=== PATIENT | male | born 1965 | race Two or more races ===

== ENCOUNTER → 2018-07-24 | Outpatient (CLI) | payer OTHER ==
[~2018-07-24] MED LIST: ALBU8HFA2 INH; AMPDEX10 PO; ARIP20 PO; ATOM60 PO; CEPH500 PO; CIPR500 PO; CLIN150 PO; CLON.2 PO; CODGUAEL PO; CYCL10 PO; CYMBALTA; DIAZ10 PO; DULO60 PO; ERYT500 PO; HYDACE5 PO; HYDACE5325 PO; IBUP800 PO; KETO10 PO; METPRE4DP PO; NAPR500 PO; NICO14TP TOP; Naprosyn500 MG PO; OMEP20ER PO; PRODEXEL PO; PROM25 PO; RXCLIN PO; RXHYD5325 PO; STRATTERA; SULTRIDS PO; SULTRISS PO; TRAM50 PO; TRAZ50 PO; Ventolin/Prove6.7 GM INH; Zithromax250 MG PO; saphris PO
== END | disposition home or self-care (01) ==
LOC: PLD 08:35 → LAB SHORT 08:35
DX: D23.5 Other benign neoplasm of skin of trunk (principal)
CPT/HCPCS: 88305

== ENCOUNTER 2018-10-18 09:47 | Day surgery (SDC) | payer OTHER ==
[~2018-10-18] VITALS: Ht 172.7 cm; Wt 103.1 kg
[~2018-10-18 09:47] MED LIST changes: +ALBU90OI; +ATOR80 PO; +Prinivil10 MG PO; +SERT100 PO
[2018-10-18] MEDS ORDERED: IBUP100S (10:11)
--- NOTE | 2018-10-18 10:47 | NUR ---
10/18/18 1047 Yola Quintero PT. LUNGS CLEAR EXCEPT WITH INSP. WHEEZES ON RIGHT SIDE , UPPER LOBES ANTERIORLY & POSTERIORLY. PT. VERBALIZES USING HIS INHALER TODAY.
== END 2018-10-18 11:47 | disposition home or self-care (01) ==
LOC: ORSCSDS 09:47
PROVIDERS: Internal Medicine Gastroenterology
PROC: 0DBH8ZX Excision of Cecum, Via Natural or Artificial Opening Endoscopic, Diagnostic (ICD-10-PCS; principal; 2018-10-18 11:00)
PROC: 0DBN8ZX Excision of Sigmoid Colon, Via Natural or Artificial Opening Endoscopic, Diagnostic (ICD-10-PCS; principal; 2018-10-18 11:00)
PROC: 0DBM8ZX Excision of Descending Colon, Via Natural or Artificial Opening Endoscopic, Diagnostic (ICD-10-PCS; principal; 2018-10-18 11:00)
PROC: 0DBP8ZX Excision of Rectum, Via Natural or Artificial Opening Endoscopic, Diagnostic (ICD-10-PCS; principal; 2018-10-18 11:00)
DX: Z12.11 Encounter for screening for malignant neoplasm of colon (principal); D12.0 Benign neoplasm of cecum; D12.4 Benign neoplasm of descending colon; D12.5 Benign neoplasm of sigmoid colon; K62.1 Rectal polyp; K57.30 Diverticulosis of large intestine without perforation or abscess without bleeding; I10 Essential (primary) hypertension; F17.210 Nicotine dependence, cigarettes, uncomplicated; J45.909 Unspecified asthma, uncomplicated; E66.01 Morbid (severe) obesity due to excess calories; Z68.41 Body mass index [BMI] 40.0-44.9, adult; Z79.899 Other long term (current) drug therapy
CPT/HCPCS: 88305; J2704; J7120

== ENCOUNTER → 2024-08-20 | Outpatient (CLI) | payer OTHER ==
[~2024-08-20] MED LIST changes: +IBUP100S
[2024-08-20 13:31] LABS: Microalb/Creat Ratio UR, Rand Unable to Calculate mg/g (0.000-30.000); Microalbumin, Random Urine <5.000 mg/L (0.000-20.000)
== END | disposition home or self-care (01) ==
LOC: LAB SHORT 09:45 → LAB 09:45
PROVIDERS: Physician Assistant
DX: E11.9 Type 2 diabetes mellitus without complications (principal)
CPT/HCPCS: 82043; 82570

== ENCOUNTER → 2025-05-08 | Outpatient (CLI) | payer OTHER ==
[2025-05-08 08:46] LABS: BASOPHILS ABSOLUTE AUTO 0.03 K/mm3 (0.00-0.23); BASOPHILS PERCENT AUTO 0 % (0-2); EOSINOPHILS ABSOLUTE AUTO 0.05 K/mm3 (0.00-0.68); EOSINOPHILS PERCENT AUTO 1 % (0-6); Hematocrit 42.0 % (37.0-53.0); Hemoglobin 13.9 g/dL (13.5-17.5); IMMATURE GRAN ABSOLUTE AUTO 0.03 K/mm3 (0.00-0.10); IMMATURE GRAN PERCENT AUTO 0 % (0-1); LYMPHOCYTES ABSOLUTE AUTO 1.37 K/mm3 (0.84-5.20); LYMPHOCYTES PERCENT AUTO 14 % (21-46); MONOCYTES ABSOLUTE AUTO 0.63 K/mm3 (0.16-1.47); MONOCYTES PERCENT AUTO 6 % (4-13); Mean Corpuscular HGB Conc 33.1 g/dL (31.5-36.5); Mean Corpuscular Volume 91 fL (80-100); NEUTROPHILS ABSOLUTE AUTO 7.94 K/mm3 (1.96-9.15); NEUTROPHILS PERCENT AUTO 79 % (41-73); NRBC ABSOLUTE 0.00 K/mm3 (0.00-0.02); NRBC Auto 0.0 /100 WBC (0.0-0.2); Platelet Count 335 K/mm3 (150-400); RDW Coefficient Variation 14.3 % (11.7-14.2); RDW Standard Deviation 47.6 fL (35.1-46.3)
[2025-05-08 08:58] LABS: Alanine Aminotransfer (ALT/SGP 18.0 U/L (12-78); Albumin, Blood 3.7 g/dL (3.4-5.0); Albumin/Globulin Ratio 1.1 (0.8-1.8); Anion Gap 11.0 mmol/L (3-11); Aspartate Aminotrans (AST/SGOT 14.0 U/L (12-37); Bilirubin, Total 0.4 mg/dL (0.1-1.0); Blood Urea Nitrogen 15.0 mg/dL (8-24); CO2, Blood 24.0 mmol/L (21-32); Calcium, Blood 8.8 mg/dL (8.5-10.1); Chloride, Blood 106.0 mmol/L (98-108); Creatinine, Blood 0.7 mg/dL (0.60-1.20); Globulin, Blood 3.5 g/dL (2.2-4.0); Glucose, Blood 109.0 mg/dL (70-99); Potassium, Blood 4.3 mmol/L (3.5-5.5); Sodium, Blood 137.0 mmol/L (136-145); Total Protein, Blood 7.2 g/dL (6.4-8.2)
== END | disposition home or self-care (01) ==
LOC: LAB SHORT 08:42
PROVIDERS: Physician Assistant
DX: R10.A2 Flank pain, left side (principal)
CPT/HCPCS: 80053; 85025

== ENCOUNTER → 2025-05-15 | Outpatient (CLI) | payer OTHER ==
[2025-05-15 14:25] LABS: Chlamydia Trachomatis Urine NOT DETECTED (NOT DETECT); Neisseria Gonorrhoea Urine NOT DETECTED (NOT DETECT)
== END | disposition home or self-care (01) ==
LOC: LAB SHORT 11:17 → LAB 11:17
PROVIDERS: Physician Assistant
DX: R35.89 Other polyuria (principal)
CPT/HCPCS: 87491; 87591